=== PATIENT | female | born 1995 ===

== ENCOUNTER 2021-01-01 07:56 | Outpatient (REF) | payer MEDICAID, SELFPAY ==
[2021-01-01 14:34] LABS: CT PCR NOT DETECTED (Not Detect.); NG PCR NOT DETECTED (Not Detect.)
[2021-01-02 09:21] LABS: BV Int Neg Control Negative (Negative); BV Int Pos Control Positive (Positive)
== END 2021-01-01 07:57 | disposition home or self-care (01) ==
LOC: HO.LAB 07:56
PROVIDERS: Visit Provider Advanced Practice Midwife
DX: Z01.419 Encounter for gynecological examination (general) (routine) without abnormal findings (principal); N89.8 Other specified noninflammatory disorders of vagina; Z20.2 Contact with and (suspected) exposure to infections with a predominantly sexual mode of transmission
CPT/HCPCS: 87480; 87491; 87510; 87591; 87660

== ENCOUNTER 2022-02-06 08:10 | Outpatient (REF) | payer MEDICAID, SELFPAY ==
[2022-02-06 18:29] LABS: CT PCR NOT DETECTED (Not Detect.); NG PCR NOT DETECTED (Not Detect.)
[2022-02-07 13:07] LABS: BV Int Neg Control Negative (Negative); BV Int Pos Control Positive (Positive)
== END 2022-02-06 08:11 | disposition home or self-care (01) ==
LOC: HO.LAB 08:10
PROVIDERS: Visit Provider Advanced Practice Midwife
DX: Z01.411 Encounter for gynecological examination (general) (routine) with abnormal findings (principal); N93.0 Postcoital and contact bleeding; Z20.2 Contact with and (suspected) exposure to infections with a predominantly sexual mode of transmission
CPT/HCPCS: 87480; 87491; 87510; 87591; 87660; 88142

== ENCOUNTER 2023-02-09 08:53 | Outpatient (REF) | payer MEDICAID, SELFPAY ==
[2023-02-10 09:35] LABS: BV Int Neg Control Negative (Negative); BV Int Pos Control Positive (Positive)
== END 2023-02-09 08:54 | disposition home or self-care (01) ==
LOC: HO.LAB 08:53
PROVIDERS: PCP Internal Medicine; Visit Provider Advanced Practice Midwife
DX: Z01.419 Encounter for gynecological examination (general) (routine) without abnormal findings (principal); Z20.2 Contact with and (suspected) exposure to infections with a predominantly sexual mode of transmission; R21 Rash and other nonspecific skin eruption; N92.6 Irregular menstruation, unspecified; F43.9 Reaction to severe stress, unspecified
CPT/HCPCS: 0353U; 86704; 86780; 86803; 87389; 87480; 87510; 87660

== ENCOUNTER 2023-02-09 09:33 | Outpatient (REF) | payer MEDICAID, SELFPAY | END 2023-02-09 09:34 | disposition home or self-care (01) | LOC: HO.LNP 09:33 | PROVIDERS: Visit Provider Advanced Practice Midwife | DX: Z13.89 Encounter for screening for other disorder (principal) ==

== ENCOUNTER 2023-02-09 09:49 | Outpatient (REF) | payer MEDICAID, SELFPAY ==
[2023-02-09 11:58] LABS: HBc Num1 0.06 S/CO (0.00-0.79); HIV AB/AG Nonreactive (Nonreactive); HIV Num 1 0.06 S/CO (0.00-0.99); Hepatitis B Core Antibody Nonreactive (Nonreactive); Syphilis Screen Nonreactive (Nonreactive); ~HepC Num1 0.11 S/CO (0.00-0.79); ~Hepatitis C Antibody Nonreactive (Nonreactive)
[2023-02-09 14:31] LABS: CT PCR NOT DETECTED (Not Detect.); NG PCR NOT DETECTED (Not Detect.)
== END 2023-02-09 09:50 | disposition home or self-care (01) ==
LOC: HO.LAB 09:49
PROVIDERS: PCP Internal Medicine; Visit Provider Advanced Practice Midwife
DX: Z11.4 Encounter for screening for human immunodeficiency virus [HIV] (principal); Z11.3 Encounter for screening for infections with a predominantly sexual mode of transmission; R21 Rash and other nonspecific skin eruption; Z20.2 Contact with and (suspected) exposure to infections with a predominantly sexual mode of transmission
CPT/HCPCS: 0353U; 86704; 86780; 86803; 87389

== ENCOUNTER 2025-02-07 14:11 | Outpatient (AMB) | payer MEDICAID, SELFPAY ==
[2025-02-07 14:14] VITALS: BP 102/64; BMI 22.7
--- NOTE | 2025-02-07 14:14 | A.OFFVIS_ITS ---
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 Doing well with varnish blender concerns: itching rash on trunk, arms, she reports this rash occurred in the past but did not stay as long as it has now, she is not sure it's cause. Regular monthly menses. Currently is sexually active. She denies vaginal itching and irritation. STI screening offered; she accepts. She tries to eat healthy and stays active with exercise. Denies family history of breast, ovarian or colon cancer. Last pap smear 2021, negative. [facility] Medical History (Updated 02/07/25 @ 16:15 by Cinthya Linares CNM) Breast mass, right Abnormality of cervix Surgical History Hx of section Family History Sister Breast atypical hyperplasia Social History Alcohol intake: current Alcohol intake frequency: holidays/special occasions only Patient Tobacco Use Status: Never used Tobacco Substance Use Type: Marijuana Sexual orientation: Straight/Heterosexual Gender identity: Female Female Reproductive History Menstrual Age of Menarche: 13 Duration of menses: 3-5 days Date of last menstrual period: 01/25/25 control method: none Total pregnancies: 3 Full term: 3 Number of Living Children: 3 Date of last pap smear: 02/06/22 (neg) Review of Systems Const All systems reviewed & are unremarkable except as noted in HPI and below Reports as per HPI Eyes Reports no additional complaints ENT Reports no additional complaints Card Reports no additional complaints Resp Reports no additional complaints GI Reports as per HPI and Reports no additional complaints Reports as per HPI Musc Reports no additional complaints Skin/Breast Reports as per HPI Neuro Reports no additional complaints Psych Reports no additional complaints Endo Reports no additional complaints Hans/Lymph Reports no additional complaints Aller/Immun Reports no additional complaints Physical Exam Vital Signs: Last Vital Signs BP 102/64 02/07/25 14:14 BMI result Body Mass Index 22.7 Const General: cooperative, healthy appearing, no acute distress, well developed and alert Orientation/consciousness: patient oriented x3 HEENT Head: Yes normal to inspection Eyes General: appearance normal, both eyes and all related structures Neck Neck: Yes normal visual inspection Thyroid: Thyroid normal Chest Other: Palpable breast lump right side at 12:00 above areola Chest palpation & inspection: normal inspection of the chest and other (no puckering, dimpling, peau de orange, retraction, discharge, masses) Breast/axilla inspection: normal inspection of the breasts Breast/axilla palpation: abnormal palpation of the breast (right breast lump 12:00) Resp Effort & Inspection: normal respiratory effort GI Inspection: Yes normal to inspection and Yes scar Palpation (GI): Soft to palpation Rectal Exam - Female: deferred General: Yes bladder normal to palpation External Female Exam: normal external appearance and normal appearance of the urethra Speculum Exam - Vagina: normal appearance of the vagina, normal palpation and normal vaginal discharge Speculum Exam - Cervix: normal appearance of the cervix, normal palpation and Other cervical findings present (Abnormal appearance, bled with Pap) Bimanual exam- vagina & uterus: normal bimanual exam, normal palpation, uterine size normal, bladder normal to palpation, normal palpation and non-tender Bimanual Exam- Adnexa, other: no masses Skin Other: pink macular rash on chest and arm Rashes: no rashes Neuro General: patient oriented x3 Cognition (Neuro): normal cognition Extrem General: Yes normal to inspection Psych Attitude: cooperative Thought process: Normal thought process present Results AMB Test Urine AMB Test Urine Negative Last Edit by HODAN Membreno on 02/07/25 14:41 Results Reviewed Results Reviewed: Laboratory Last Values Tst Clinic Negative 02/07/25 14:41 Assessment & Plan Assessment & Plan (1) Encounter for annual routine gynecological examination: Code(s): Z01.419 - Encounter for gynecological examination (general) (routine) without abnormal findings Category: Medical Plan: Discussed: Current recommendations for pap smears per ASCCP guidelines. Pap obtained Breast awareness and periodic breast exams. Maintain a healthy lifestyle including a well balanced diet and routine exercise. Use condoms for STI and prevention. Consider options for control await workup for breast first before initiating any hormones. Follow up with PCP for a skin rash if persist. Patient verbalizes understanding and agrees to the plan of care. She was given opportunity to ask questions and all questions were answered to the best of my ability. RTO in one year for annual varnish blender examination. This note is constructed using voice recognition software. While every effort has been made to ensure accuracy, contract analyst errors may have been included. (2) Postcoital bleeding: Code(s): N93.0 - Postcoital and contact bleeding Category: Medical Plan: Cultures obtained. Await results for plan of care. (3) Abnormality of cervix: Code(s): N88.9 - Noninflammatory disorder of cervix uteri, unspecified Category: Medical Plan: Cervical cultures obtained, Ultrasound ordered, plan follow up pending results. Total time I personally spent on visit and management today: 15 minutes. Time spent included review of pertinent office notes in the electronic health record; review of laboratory and imaging results; review of personal family medical history; performing physical exam; discussing diagnosis and plan of care with the patient; documenting the encounter in the EMR. (4) Breast mass, right: Code(s): N63.10 - Unspecified lump in the right breast, unspecified quadrant Category: Medical Qualifiers: Breast mass location: unspecified quadrant Qualified Code(s): N63.10 - Unspecified lump in the right breast, unspecified quadrant Plan Plan breast ultrasound, and diagnostic bilateral mammogram. Follow up pending test results. Consider surgical referral if indicated. The patient expressed understanding and agreement with the plan of care. All of her questions and concerns were addressed to the best of my ability. This note is constructed using voice recognition software. While every effort has been made to ensure accuracy, contract analyst errors may have been included. Orders: Orders HIV Ab/Ag Today Z20.2 - Contact with and (suspected) exposure to infections with a predominantly sexual mode of transmission Hepatitis C Antibody Reflex Today Z20.2 - Contact with and (suspected) exposure to infections with a predominantly sexual mode of transmission Hepatitis B Core Antibody Today Z20.2 - Contact with and (suspected) exposure to infections with a predominantly sexual mode of transmission US pelvic and transvaginal Today N88.9 - Noninflammatory disorder of cervix uteri, unspecified, N93.0 - Postcoital and contact bleeding MM tomosynthesis diagnostic BI Today Z01.419 - Encounter for gynecological examination (general) (routine) without abnormal findings, Z12.31 - Encounter for screening mammogram for malignant neoplasm of breast CT NG by PCR Today N89.8 - Other specified noninflammatory disorders of vagina, N93.0 - Postcoital and contact bleeding Syphilis Screen Today Z20.2 - Contact with and (suspected) exposure to inf ections with a predominantly sexual mode of transmission US breast RT limited Today N63.10 - Unspecified lump in the right breast, unspecified quadrant Bacterial Vaginosis Panel Today N89.8 - Other specified noninflammatory disorders of vagina, N93.0 - Postcoital and contact bleeding HPV High risk Today Z01.419 - Encounter for gynecological examination (general) (routine) without abnormal findings Pap Smear Today Z01.419 - Encounter for gynecological examination (general) (routine) without abnormal findings AMB HCG Urine Test Today N93.0 - Postcoital and contact bleeding, Z32.02 - Encounter for test, result negative Coding Level of Care Code Est Pt Level 2 (54161) Est Pt Prev Care 18-39y(59770) Diagnoses Encounter for annual routine gynecological examination Z01.419 Postcoital bleeding N93.0 Abnormality of cervix N88.9 Mass of right breast, unspecified quadrant N63.10 Breast mass location: unspecified quadrant
== END 2025-02-07 14:44 | disposition home or self-care (01) ==
PROVIDERS: PCP Internal Medicine; Visit Provider Advanced Practice Midwife
DX: Z01.419 Encounter for gynecological examination (general) (routine) without abnormal findings (principal); N93.0 Postcoital and contact bleeding; N88.9 Noninflammatory disorder of cervix uteri, unspecified; N63.10 Unspecified lump in the right breast, unspecified quadrant; Z32.02 Encounter for pregnancy test, result negative
CPT/HCPCS: 99212; 99395; 99459

== ENCOUNTER 2025-02-07 14:11 | Outpatient (REF) | payer MEDICAID, SELFPAY ==
--- OUTSIDE RECORDS SUMMARY | 2025-02-07 16:51 | XMS_ITS | Clinical Summary ---
Author Organization [employer] Address [address] [place] [address] Care Team Providers Care Laboratory Secretary Name Role Phone Swathi Mckeon MD Primary Care Provide r Allergies No known active allergies Medications famotidine (Pepcid) 20 MG tabletIndicatio ns:Gastroesopha geal reflux disease without esophagitis,Hea rtburn Take 1 tablet (20 mg) by mouth 2 times daily. 60 tablet 11 02/13/2023 Active hydrOXYzine HCl (Atarax) 25 MG tabletIndicatio ns:Anxiety Take 1 tablet (25 mg) by mouth every 8 (eight) hours if needed for itching for up to 20 days. 30 tablet 1 02/13/2023 Active sertraline (Zoloft) 25 MG tabletIndicatio ns:Anxiety Take 1 tablet (25 mg) by mouth in the morning. 30 tablet 1 02/13/2023 Active loratadine (Claritin) 10 MG tabletIndicatio ns:Allergy, initial encounter Take 1 tablet (10 mg) by mouth in the morning. 30 tablet 11 02/13/2023 Active Active Problems Problem Noted Date Diagnosed Date Anxiety 02/13/2023 Assessment & Plan (02/13/2023 10:16 AM EDT): We talked about non-medication interventions for anxiety including exercise, meditation, counseling, mindfulness practices. I started today sertraline and hydroxyzine BHN referral RTC 4 weeks televisit Gastroesophageal reflux disease without esophagi tis 02/13/2023 Assessment & Plan (02/13/2023 10:16 AM EDT): I advise patient to avoid NSAIDs, spicy and acid food, I advise to eat at the same time every day, I advise to elevate the head of the bed and take medications as prescribe Heartburn 02/13/2023 Assessment & Plan (02/13/2023 10:17 AM EDT): h pylori test See GERD plan Health care maintenance 02/13/2023 Assessment & Plan (02/13/2023 10:17 AM EDT): Patient reports PAP is up to date Allergies 02/13/2023 Encounters Date Type Department Care Team Description 12/23/2024 Population Health Risk Score [facility] () Department [address] [place] [address] [phone] Provider, Population Health Generic from Last 3 Months Immunizations Name Administration Dates Next Due Influenza injectable quadrivalent preservative f ree 07/29/2019 Tdap 03/24/2016 Varicella 12/11/2019 Social History Tobacco Use Types Packs/Day Years Used Date Smoking Tobacco: Never Smokeless Tobacco: Never Tobacco Cessation:Counseling Given: Not Answered Alcohol Use Standard Drinks/Week Comments Never 0 (1 standard drink = 0.6 oz pur e alcohol) Depression Answer Date Recorded Patient Health Questionnaire-9 Score 5 02/13/2023 Housing Stability Answer Date Recorded What is your housing situation today? I have darlingcarline mercado 08/17/[address] you li ve. Do you have problems with any of the following? None of the above 08/17/2023 Food Insecurity Answer Date Recorded Within the past 12 months, y ou worried that your food would run out before you got money to buy more: Never True 08/17/2023 Within the past 12 months,th e food you bought just didn't last and you didn't have enough money to get more: Never True 03/2023 Utilities Answer Date Recorded In the past 12 months, has t he electric, gas, oil or water company threatened to shut off services in your home? No 08/17/2023 Depression Answer Date Recorded Patient Health Questionnaire-2 Score 2 02/13/2023 Comments Unknown Sex and Gender Information Value Date Recorded Sex Assigned at Female 08/11/2022 10:15 AM EDT Legal Sex Female 10:15 AM EDT Gender Identity Female 08/11/2022 10:15 AM EDT Sexual Orientation Straight 08/11/2022 10 :15 AM EDT Last Filed Vital Signs Vital Sign Reading Time Taken Comments Blood Pressure 114/58 02/13/2023 9:17 AM EDT Pulse 84 02/13/2023 9:17 AM EDT Temperature 37.1 ??C (98.7 ??F) 02/13/2023 9:17 AM ED T Respiratory Rate 20 02/13/2023 9:17 AM EDT Oxygen Saturation - - Inhaled Oxygen Concentration - - Weight 52.8 kg (116 lb 6 oz) 02/13/2023 9:17 AM EDT Height 157.5 cm (5' 2 ) 02/13/2023 9:17 AM EDT Body Mass Index 21.29 02/13/2023 9:17 AM EDT Plan of Treatment Health Maintenance Due Date Last Done Comments Alcohol/Substance Use Screening 2006 Family Planning (PISQ) 2009 Hepatitis B Vaccines (1 of 3 - 19+ 3-dose series) 2013 Depression Screening 02/14/2024 02/13/2023, 02/13/2023 SDOH Screening 02/14/2024 02/13/2023 Tobacco Screening 02/14/2024 02/13/2023 HPV/Cotest 02/21/2024 COVID-19 Vaccine (3 - 2023-2 5 season) 2024 01/14/2022, 12/24/2021 Influenza Vaccine (#1) 2024 07/29/2019 Cervical Cancer Screening 02/07/2025 Pap Smear 02/07/2025 02/07/2022 DTaP/Tdap/Td Vaccines (2 - T d or Tdap) 03/24/2026 03/24/2016 Zoster Vaccines (1 of 2) 02/21/2044 RSV Patients and Patients Aged 60 years or older (1 - 1-dose 75+ series) 2069 HIV Screening Completed 02/09/2023 Hepatitis C Screening Completed 02/09/2023 HIB Vaccines Aged Out No longer eligi ble based on patient's age to complete this topic HPV Vaccines Aged Out No longer eligi ble based on patient's age to complete this topic Hepatitis A Vaccines Aged Out No long er eligible based on patient's age to complete this topic IPV Vaccines Aged Out No longer eligi ble based on patient's age to complete this topic Meningococcal Vaccine Aged Out No belkys jess eligible based on patient's age to complete this topic Pneumococcal Vaccine: Pediatrics (0 to 5 Years) and At-Risk Patients (6 to 49) Years) Aged Out No longer eligible b ased on patient's age to complete this topic RSV under 20 months Aged Out No longe r eligible based on patient's age to complete this topic Rotavirus Vaccines Aged Out No longer eligible based on patient's age to complete this topic Procedures Procedure Name Priority Date/Time Associated Diagnosis Comments HEPATITIS C ANTIBODY Routine 02/09/2023 10:10 AM EDT HIV ANTIBODY/ANTIGEN (LUPE BOLIVAR) Routine 02/09/2023 10:10 AM EDT HM PAP/HPV Routine 02/07/2022 from Last 3 Months or Most Recently Relevant to Health Maintenance Results * Hepatitis C Ab (02/09/2023 10:10 AM EDT) Hepatitis C Antibody Nonreactive Nonreactive [facility] Comment:Antibodies to HCV no t detected; does not exclude early acuteHCV infection. 02/09/2023 10:1 0 AM EDT 02/09/2023 10:10 AM EDT [facility] External Provider LAB BLO OD ORDERABLES Final Result [facility] [address] [place] [phone] * HIV Ab/Ag (LUPE DPH) (02/09/2023 10:10 AM EDT) HIV AB/AG Nonreactive Nonreactive [facility] Comment:HIV-1 p24 Ag and/or HIV-1/HIV-2 Ab not detected.A test result that is nonreactive does not exclude thepossibility of exposure to or infection with HIV-1 and/orHIV-2. Nonreactive results in this assay for individualswith prior exposure to HIV-1 and/or HIV-2 may be due toantigen and antibody levels that are below the limit ofdetection of this assay.The [employer] HIV Ag/Ab Combo assay result andsupplemental assay results should be interpreted inconjunction with the patient's clinical presentation,history and other laboratory results. If the results areinconsistent with clinical evidence, additional testing issuggested to confirm the result. 02/09/2023 10:1 0 AM EDT 02/09/2023 10:10 AM EDT [facility] External Provider LAB BLO OD ORDERABLES Final Result [facility] [address] [place] [address] [phone] * Pap Smear (02/07/2022) Pap Negative for intraephithelial lesion or malignancy Negative for intraephithelial lesion or malignancy, Other Historical Provider MD HEALTH MAINTENANCE Final Result from Last 3 Months or Most Recently Relevant to Health Maintenance Insurance [facility] [address] C[address] Care Teams Laboratory Secretary Relationship Specialty Start Date End Date Swathi Mckeon MD [address] [place] [address] [place] [address] PCP - General Internal Medicine 02/05/23
[2025-02-07 17:46] LABS: Bacterial Vaginosis PCR NEGATIVE (Negative); Candida Group PCR DETECTED (Not Detect); Candida glab krusei PCR NOT DETECTED (Not Detect); Trichomonas vaginalis PCR NOT DETECTED (Not Detect)
[2025-02-07 18:11] LABS: CT PCR NOT DETECTED (Not Detect.); NG PCR NOT DETECTED (Not Detect.)
[2025-02-08 08:03] LABS: Syphilis Screen Nonreactive (Nonreactive)
[2025-02-08 11:47] LABS: HBc Num1 0.06 S/CO (0.00-0.79); HIV AB/AG Nonreactive (Nonreactive); HIV Num 1 0.06 S/CO (0.00-0.99); Hepatitis B Core Antibody Nonreactive (Nonreactive); ~HepC Num1 0.09 S/CO (0.00-0.79); ~Hepatitis C Antibody Nonreactive (Nonreactive)
[2025-02-10 13:45] LABS: HPV Genotype 16 Negative (Negative); HPV Genotype 18 Negative (Negative); HPV High Risk Negative (Negative)
== END 2025-02-07 14:12 | disposition home or self-care (01) ==
LOC: HO.LAB 14:11
PROVIDERS: PCP Internal Medicine; Visit Provider Advanced Practice Midwife
DX: Z01.419 Encounter for gynecological examination (general) (routine) without abnormal findings (principal); Z20.2 Contact with and (suspected) exposure to infections with a predominantly sexual mode of transmission; N89.8 Other specified noninflammatory disorders of vagina; N93.0 Postcoital and contact bleeding
CPT/HCPCS: 81025; 81515; 86704; 86780; 86803; 87389; 87491; 87591; 87626; 88175; 99212; 99395; 99459

== ENCOUNTER 2025-02-07 14:31 | Outpatient (REF) | payer MEDICAID, SELFPAY | END 2025-02-07 14:32 | disposition home or self-care (01) | LOC: HO.LAB 14:31 | PROVIDERS: Visit Provider Advanced Practice Midwife | DX: Z13.89 Encounter for screening for other disorder (principal) ==

== ENCOUNTER 2025-03-03 13:56 | Outpatient (REF) | payer MEDICAID, SELFPAY ==
--- NOTE | ~2025-03-03 | US_ITS ---
EXAMINATION: US PELVIS TRANSABDOMINAL AND TRANSVAGINAL HISTORY: N93.0 - Postcoital and contact bleeding COMPARISON: There are no prior studies for comparison. TECHNIQUE: Transabdominal and endovaginal real-time 2D lopez-scale ultrasound was performed. FINDINGS: Uterus: The uterus is normal in size, measuring 8.8 x 4.1 x 5.4 cm. Myometrium has a normal echotexture. No fibroids are identified. Endometrium: The endometrial stripe measures 7 mm in thickness. A small amount of fluid is seen in the endometrial canal. Right ovary: The right ovary measures 1.7 x 1.9 x 2.0 cm. The right ovary is normal in size and echotexture. Left ovary: The left ovary measures 3.2 x 2.3 x 3.0 cm. The left ovary is normal in size and echotexture. There is a dominant 1.9 x 1.3 x 1.6 cm follicle. Pelvic fluid: none. US/US pelvic and transvaginal IMPRESSION: Small amount of fluid in the endometrial canal. Otherwise unremarkable pelvic ultrasound. Electronically signed by: Manpreet Thao MD 03/03/2025 02:56 PM EDT
--- OUTSIDE RECORDS SUMMARY | 2025-03-03 13:59 | XMS_ITS | Clinical Summary ---
Author Organization [employer] Address [address] [place] [address] Care Team Providers Care Director Community Health Nursing Name Role Phone Swathi Mckeon MD Primary [...] Encounters Date Type Department Care Team Description 02/10/2025 Telephone [facility] MEDICINE [address] [place], [place] [phone] Swathi Mckeon MD Results 02/07/2025 Orders Only GENERIC EXTERNAL DATA DEPARTMENT Provider, Generic External Data 12/23/2024 Population Health Risk Score [facility] () Department [address] [place] [phone] Provider, Population Health Generic from Last 3 Months Immunizations Immunization Administration Dates Next Due Influenza injectable quadrivalent [...] is your housing situation today? I have darling mercado 08/17/[address] you [...] 02/13/2023 9:17 AM EDT Plan of Treatment Upcoming Encounters Date Type Department Care Team (Late st Contact Info) Description 03/27/2025 10:15 AM EDT Office Visit [facility] [address] [place] [address] Swathi Mckeon MD [address] [place] [address] Health Maintenance Due Date Last Done Comments Disability Screening 1994 Alcohol/Substance Use Screening 2006 Family Planning (PISQ) 2009 Hepatitis B Vaccines (1 of 3 - 19+ 3-dose series) 2013 Depression Screening 02/14/2024 02/13/2023, 02/13/2023 SDOH Screening 02/14/2024 02/13/2023 Tobacco Screening 02/14/2024 02/13/2023 COVID-19 Vaccine (3 2023-2 5 season) 2024 01/14/2022, 12/24/2021 Influenza Vaccine (#1) 2024 07/29/2019 DTaP/Tdap/Td Vaccines (2 - T d or Tdap) 03/24/2026 03/24/2016 Cervical Cancer Screening 02/07/2030 HPV/Cotest 02/07/2030 02/07/2025 Pap Smear 02/07/2030 02/07/2025, 02/07/2022 Zoster Vaccines (1 of 2) 02/21/2044 RSV Patients and Patients Aged 60 years or older (1 - 1-dose 75+ series) 2069 HIV Screening Completed 02/07/2025, 02/09/2023 Hepatitis C Screening Completed 02/07/2025 , 02/09/2023 HIB Vaccines Aged Out No longer [...] patient's age to complete this topic Meningococcal B Vaccine Aged Out No l onger eligible based on patient's age to complete [...] Procedure Name Priority Date/Time Associated Diagnosis Comments HIV 1/2 ANTIGEN/ANTIBODY, FOURTH GENERATION W/RFL Routine 02/07/2025 3:00 PM EDT HEPATITIS C AB W/REFL TO HCV RNA, QN, PCR Routine 02/07/2025 3:00 PM EDT HEPATITIS B CORE AB TOTAL Routine 02/07/2025 3:00 PM EDT SYPHILIS SCREEN Routine 02/07/2025 3:00 PM EDT PAP SMEAR Routine 02/07/2025 2:31 PM EDT HPV DNA, LOW/HIGH RISK Routine 02/07/2025 2:31 PM EDT CHLAMYDIA/N. GONORRHOEAE RNA, TMA, UROGENITAL Routine 02/07/2025 2:11 PM EDT BACTERIAL VAGINOSIS PANEL Routine 02/07/2025 2:11 PM EDT from Last 3 Months Results * Syphilis Screen (02/07/2025 3:00 PM EDT) Syphilis Screen Nonreactive Nonreactive [facility] 02/07/2025 3:00 PM EDT 02/07/2025 3:03 PM EDT Generic External Data Provider LAB BLOOD ORDERAB LES Final Result Performing Organization Address City/[facility]/ZIP Co de Phone Number [facility] [address] [place] [phone] * Hepatitis C Antibody with Reflex to HCV, RNA, Quantitative, Real-Time PCR (02/07/2025 3:00 PM EDT) Pathologist [facility] Hepatitis C Antibody Nonreactive Nonreactive [facility] Comment:Antibodies to HCV no t detected; does not exclude early acuteHCV infection. 02/07/2025 3:00 PM EDT 02/07/2025 3:03 PM EDT Generic External Data Provider LAB BLOOD ORDERAB LES Final Result Performing Organization Address City/[facility]/ZIP Co de Phone Number [facility] [address] [place] [phone] * Hepatitis B Core Antibody, Total (02/07/2025 3:00 PM EDT) Hepatitis B Core Antibody Nonreactive Nonreactive [facility] 02/07/2025 3:00 PM EDT 02/07/2025 3:03 PM EDT us Generic External Data Provider LAB BLOOD ORDERAB LES Final Result Performing Organization Address City/[facility]/ZIP Co de Phone Number [facility] [address] [place] [phone] [phone] * HIV-1/2 Antigen and Antibodies, Fourth Generation, with Reflexes (02/07/2025 3:00 PM EDT) HIV AB/AG Nonreactive Nonreactive [facility] Comment:HIV-1 p24 Ag and/or HIV-1/HIV-2 Ab not detected.A test result that is nonreactive does not exclude thepossibility of exposure to or infection with HIV-1 and/orHIV-2. Nonreactive results in this assay for individualswith prior exposure to HIV-1 and/or HIV-2 may be due toantigen and antibody levels that are below the limit ofdetection of this assay.The [employer] HIV Ag/Ab Combo assay result andsupplemental assay results should be interpreted inconjunction with the patient's clinical presentation,history and other laboratory results. If the results areinconsistent with clinical evidence, additional testing issuggested to confirm the result. 02/07/2025 3:00 PM EDT 02/07/2025 3:03 PM EDT us Generic External Data Provider LAB BLOOD ORDERAB LES Final Result Performing Organization Address City/[facility]/ZIP Co de Phone Number [facility] [address] [place] [phone] [phone] * HPV DNA, Low/High Risk (02/07/2025 2:31 PM EDT) HPV High Risk Negative Negative [facility] HPV Genotype 16 Negative Negative [facility] HPV Genotype 18 Negative Negative [facility] Comment:HPV testing performe d at [facility] (CLIA#[id number] [address].Testing for HPV was performed using the Angi SLAVA 6800system. The presence of HPV in the female genital tract isassociated with a number of diseases, including cervicalcarcinoma. The HPV DNA high risk pool tests for HPV 31, 33,35, 39, 45, 51, 52, 56, 58, 59, 66 and 68. The testing forHPV 16 and 18 genotypes has also been performed. A positiveresult indicates detection of nucleic acid sequences fromone or more subtypes, whereas a negative result indicatessuch sequences were not detected. 02/07/2025 2:31 PM EDT 02/08/2025 5:50 AM EDT us Generic External Data Provider LAB BLOOD ORDERAB LES Final Result [facility] [address] [place] [phone] * Pap Smear (02/07/2025 2:31 PM EDT) 02/07/2025 2:31 PM EDT 02/08/2025 5:50 AM EDT Narrative [facility] - 02/10/2025 10:07 AM EDT ----- ------- Name: Colon,Carly ?Age/Sex: 29/F ? : 1995 Unit#: [id number] ?? Attend Dr: Cinthya Linares CNM ?Re02/07/25 ?Status: DEP REF ? Location: HO.LAB ?Disch: ? ----- ------- SPEC : [id number] ? RECD: 02/08/25-53 ? STATUS: ??SOUT ? REQ NUM: [id number] ? BARAK: 02/07/25-7261 ? SUBM DR: Cinthya Linares CNM ? ENTERED: ??02/08/25-616 ?SP TYPE: Pap Smr ?OTHR DR: Swathi Mckeon MD ? ORDERED: ??Pap Smear ? Interpretation ?? Satisfactory for evaluation. ?? Negative for intraepithelial lesion or malignancy. ? HPV High Risk: ??Negative ? HPV Genotyping 16: ??Negative ?? HPV Genotyping 18: ??Negative ?Clinical Information LMP:01/25/25 Previous PAP test:02/06/22 ? Material Received ?? ThinPrep-Cervical Copies To: ?? Swathi Mckeon MD ?? [facility] ?? [address] [facility] ?? [place] [address] ?? [phone] ?? Cinthya Linares CNM ?? [facility] ?? [address] ?? [place] [address] ?? [phone] ----- ------- Signed (signature on file) ANNETTA Ng (ASCP) 02/10/25 1007 ? ----- ------- ? END OF REPORT ? us Generic External Data Provider LAB CYTOLOGY JONNA PEREZ Final Result [facility] [address] [facility] [facility] [place] [phone] * (ABNORMAL) Bacterial Vaginosis (02/07/2025 2:11 PM EDT) TRICHOMONAS VAGINALIS DETECTION BY PCR NOT DETECTED Not Detect [facility] BACTERIAL VAGINOSIS DETECTION BY PCR NEGATIVE Negative [facility] Comment:The BV organism targ ets of the Xpert Xpress MVP test can becommensal in women; Xpert Xpress MVP positive results forbacterial vaginosis should be considered in conjunction withother clinical and patient information to determine thedisease status. Organisms that are not detected by the XpertXpress MVP test have also been reported to be associatedwith BV and aerobic vaginitis.The Xpert Xpress MVP test performance has not been evaluatedin patients under the age of 14. SHALINI GROUP DETECTION BY PCR DETECTED(A) Not Detect [facility] Shalini glab krusei PCR NOT DETECTED Not Detect [facility] 02/07/2025 2:11 PM EDT 02/07/2025 3:24 PM EDT us Generic External Data Provider LAB MICROBIOLOGY - GENERAL ORDERABLES Final Result [facility] [address] [place] [phone] * Chlamydia/N. Gonorrhoeae RNA, TMA, Urogenitial (02/07/2025 2:11 PM EDT) CT PCR NOT DETECTED Not Detect. [facility] Comment:A not detected test result does not exclude the possibilityof infection because test results can be affected byimproper specimen collection, concurrent antibiotic therapy,or the number of organisms in the specimen which may bebelow the sensitivity of the test. As with many diagnostictests, results from the Xpert CT/NG assay should beinterpreted in conjunction with other laboratory andclinical data available to the clinician.Xpert CT/NG performance has not been evaluated in patientsless than 14 years of age. The assay should not be used forthe evaluationof suspected sexual abuse or for other medico-legalindications. Additional testing is recommended in anycircumstance when false positive or false negative resultscould lead to adverse medical, social or psychologicalconsequences. NG PCR NOT DETECTED Not Detect. [facility] Comment:A not detected test result does not exclude the possibilityof infection because test results can be affected byimproper specimen collection, concurrent antibiotic therapy,or the number of organisms in the specimen which may bebelow the sensitivity of the test. As with many diagnostictests, results from the Xpert CT/NG assay should beinterpreted in conjunction with other laboratory andclinical data available to the clinician.Xpert CT/NG performance has not been evaluated in patientsless than 14 years of age. The assay should not be used forthe evaluationof suspected sexual abuse or for other medico-legalindications. Additional testing is recommended in anycircumstance when false positive or false negative resultscould lead to adverse medical, social or psychologicalconsequences. 02/07/2025 2:11 PM EDT 02/07/2025 3:24 PM EDT Narrative [facility] - 02/07/2025 6:12 PM EDT Vaginal us Generic External Data Provider LAB MICROBIOLOGY - GENERAL ORDERABLES Final Result [facility] [address] [place] [phone] from Last 3 Months Insurance [facility] C3 Care Teams Director Community Health Nursing Relationship Specialty Start Date End Date Swathi Mckeon MD [address] [place] [phone] PCP - General Internal Medicine 02/05/23
== END 2025-03-03 13:57 | disposition home or self-care (01) ==
LOC: HO.US 13:56
PROVIDERS: PCP Internal Medicine; Visit Provider Advanced Practice Midwife
DX: N93.0 Postcoital and contact bleeding (principal); N88.9 Noninflammatory disorder of cervix uteri, unspecified
CPT/HCPCS: 76830; 76856

== ENCOUNTER → 2025-03-03 13:58 | Outpatient (BNV) | payer MEDICAID, SELFPAY | PROVIDERS: PCP Internal Medicine; Visit Provider Radiology Diagnostic Radiology | DX: N85.8 Other specified noninflammatory disorders of uterus (principal) | CPT/HCPCS: 76830; 76856 ==

== ENCOUNTER 2025-03-13 09:43 | Outpatient (REF) | payer MEDICAID, SELFPAY ==
--- NOTE | ~2025-03-13 | US_ITS ---
EXAMINATION: MM DIAGNOSTIC DIGITAL BREAST TOMOSYNTHESIS, BILATERAL Right limited ultrasound. CLINICAL INFORMATION: Right breast palpable lump. COMPARISON: Mammography: Baseline. TECHNIQUE: Digital breast mammography with tomosynthesis is performed in both the craniocaudal and mediolateral oblique views along with computer-aided detection (CAD). FINDINGS: The breasts are heterogeneously dense, which may obscure small masses (ACR BI-RADS breast composition Category c). BB marker in the lower inner right breast without underlying abnormality. There are no significant masses, abnormal calcifications, or other abnormalities. Targeted color Doppler ultrasound scanning from 2 6:00 in the area the patient's palpable lump demonstrates normal fibroglandular breast tissue. There is no sonographic abnormal findings. Results are provided to the patient at time of visit by the technologist. US/US breast RT limited mamm only IMPRESSION: Left: Negative. Right: No mammographic or sonographic abnormality to account for the patient's right breast palpable lump. Recommend clinical evaluation and follow-up. ASSESSMENT: BI-RADS BI-RADS 1 - Negative RECOMMENDATION: 1. Patient should be managed based on the clinical impression. 2. Otherwise, routine annual screening mammography. This patient's information was entered into a reminder system with a target due date for their next mammogram at age 39. Electronically signed by: Juani Patel DO 03/13/2025 11:42 AM EDT
--- OUTSIDE RECORDS SUMMARY | 2025-03-13 10:23 | XMS_ITS | Clinical Summary ---
Author Organization [employer] Address [address] [place] [address] Care Team Providers Care Asset Administrator Name Role Phone Swathi Mckeon MD Primary [...] Type Department Care Team Description 02/10/2025 Telephone [facility] [address] [place], [place] [phone] Swathi Mckeon MD Results 02/07/2025 Orders Only GENERIC EXTERNAL DATA DEPARTMENT Provider, Generic External Data 12/23/2024 Population Health Risk Score [facility] () Department [address] [place] [phone] Provider, Population Health Generic from Last [...] Description 03/27/2025 10:15 AM EDT Office Visit [facility] [address] [place] [address] Swathi Mckeon MD [address] [place] [address] Health Maintenance Due Date Last Done Comments Disability Screening 1994 Alcohol/Substance Use Screening 2006 Family Planning (PISQ) 2009 Hepatitis B Vaccines (1 of 3 - 19+ 3-dose series) 2013 Depression Screening 02/14/2024 02/13/2023, 02/13/2023 SDOH Screening 02/14/2024 02/13/2023 Tobacco Screening 02/14/2024 02/13/2023 COVID-19 Vaccine (2023-2 5 season) 2024 01/14/2022, 12/24/2021 Influenza Vaccine (Season Ended) 2025 07/29/2019 DTaP/Tdap/Td Vaccines (2 - T d [...] Procedure Name Priority Date/Time Associated Diagnosis Comments US PELVIS TRANSVAGINAL Routine 03/03/2025 2:18 PM EDT HIV 1/2 ANTIGEN/ANTIBODY, FOURTH GENERATION W/RFL Routine [...] EDT from Last 3 Months Results * US Pelvis Transvaginal (03/03/2025 2:18 PM EDT) Anatomical Region Laterality Modality Pelvis Ultrasound 03/03/2025 2:18 PM EDT Narrative 03/03/2025 2:59 PM EDT ? [facility] ?[address] ?[place] [address] ? Ultrasound Report ? Signed ? Patient: Colon,Carly ?MR#: [id number] ?? 0 ? : 1995 ?Acct:[id number] ? Age/Sex: 30 / F ?ADM Date: 03/03/25 ? Loc: HO.US ? Attending Dr: Cinthya Linares CNM ? Ordering Physician: Cinthya Linares CNM ?? Date of Service: 03/03/25 ?? Procedure(s): US pelvic and transvaginal ?? Accession Number(s): [id number] ? cc: Swathi Mckeon MD; Cinthya Linares CNM ? EXAMINATION: ??US PELVIS TRANSABDOMINAL AND TRANSVAGINAL ? HISTORY: N93.0 - Postcoital and contact bleeding ? COMPARISON: There are no prior studies for comparison. ? TECHNIQUE: ? Transabdominal and endovaginal real-time 2D lopez-scale ultrasound was ?? performed. ? FINDINGS: ? Uterus: ??The uterus is normal in size, measuring 8.8 x 4.1 x 5.4 cm. ? Myometrium has a normal echotexture. ??No fibroids are identified. ? Endometrium: ??The endometrial stripe measures 7 mm in thickness. A ?? small amount of fluid is seen in the endometrial canal. ? Right ovary: ??The right ovary measures 1.7 x 1.9 x 2.0 cm. ??The right ?? ovary is normal in size and echotexture. ? Left ovary: ?? The left ovary measures 3.2 x 2.3 x 3.0 cm. ??The left ?? ovary is normal in size and echotexture. There is a dominant 1.9 x 1.3 ?? x 1.6 cm follicle. ? Pelvic fluid: none. ? US/ pelvic and transvaginal ?? IMPRESSION: ?? Small amount of fluid in the endometrial canal. Otherwise unremarkable ?? pelvic ultrasound. ? Electronically signed by: ??Manpreet Thao MD ??03/03/2025 02:56 PM EDT ? Dictated By: ?Manpreet Thao MD ? Signed By: ?<Electronically signed by Manpreet Thao MD in OV> ?03/03/25 1456 ? DD/ 1418 ? TD/TT: 03/03/25 1430 ? [employer]: ? Procedure Note Radha, Image - 03/03/2025 [place] [address] Ultrasound Report Signed Patient: Carly HelmsMR#: [id number] 0 : 1995Acct:[id number] Age/Sex: 30 / FADM Date: 03/03/25 Loc: HO.US Attending Dr: Cinthya Linares CNM Ordering Physician: Cinthya Linares CNM Date of Service: 03/03/25 Procedure(s): US pelvic and transvaginal Accession Number(s): [id number] cc: Swathi Mckeon MD; Cinthya Linares CNM EXAMINATION: US PELVIS TRANSABDOMINAL AND TRANSVAGINAL HISTORY: N93.0 - Postcoital and contact bleeding COMPARISON: There are no prior studies for comparison. TECHNIQUE: Transabdominal and endovaginal real-time 2D lopez-scale ultrasound was performed. FINDINGS: Uterus: The uterus is normal in size, measuring 8.8 x 4.1 x 5.4 cm. Myometrium has a normal echotexture. No fibroids are identified. Endometrium: The endometrial stripe measures 7 mm in thickness. A small amount of fluid is seen in the endometrial canal. Right ovary: The right ovary measures 1.7 x 1.9 x 2.0 cm. The right ovary is normal in size and echotexture. Left ovary: The left ovary measures 3.2 x 2.3 x 3.0 cm. The left ovary is normal in size and echotexture. There is a dominant 1.9 x 1.3 x 1.6 cm follicle. Pelvic fluid: none. US/US pelvic and transvaginal IMPRESSION: Small amount of fluid in the endometrial canal. Otherwise unremarkable pelvic ultrasound. Electronically signed by: Manpreet Thao MD 03/03/2025 02:56 PM EDT RP Dictated By: Manpreet Thao MD Signed By: <Electronically signed by Manpreet Thao MD in OV> 03/03/25 1456 DD/ 1418 TD/TT: 03/03/25 1430 [employer]: us [facility] External Provider IMG US PROCEDURES Final Result * Syphilis Screen (02/07/2025 3:00 PM EDT) Syphilis Screen Nonreactive Nonreactive [facility] 02/07/2025 3:00 PM EDT 02/07/2025 3:03 PM EDT us Generic External Data Provider LAB BLOOD ORDERAB LES Final Result [facility] [address] [place] [phone] * Hepatitis C Antibody with Reflex to HCV, RNA, Quantitative, Real-Time PCR (02/07/2025 3:00 PM EDT) [facility] Hepatitis C Antibody Nonreactive Nonreactive [facility] Comment:Antibodies to HCV no t detected; does not exclude early acuteHCV infection. 02/07/2025 3:00 PM EDT 02/07/2025 3:03 PM EDT Generic External Data Provider LAB BLOOD ORDERAB LES Final Result Performing Organization Address City/[facility]/ZIP Co de Phone Number [facility] [address] [place] [phone] * Hepatitis B Core Antibody, Total (02/07/2025 3:00 PM EDT) [facility] Hepatitis B Core Antibody Nonreactive Nonreactive [facility] 02/07/2025 3:00 PM EDT 02/07/2025 3:03 PM EDT Generic External Data Provider LAB BLOOD ORDERAB LES Final Result Performing Organization Address [facility]/ZIP Co de Phone Number [facility] [address] [place] [phone] * HIV-1/2 Antigen and Antibodies, Fourth Generation, with Reflexes (02/07/2025 3:00 PM EDT) [facility] HIV AB/AG Nonreactive Nonreactive [facility] Comment:HIV-1 p24 Ag and/or HIV-1/HIV-2 Ab not detected.A test result that is nonreactive does not exclude thepossibility of exposure to or infection with HIV-1 and/orHIV-2. Nonreactive results in this assay for individualswith prior exposure to HIV-1 and/or HIV-2 may be due toantigen and antibody levels that are below the limit ofdetection of this assay.The [employer] HIV Ag/Ab Combo assay result andsupplemental assay results should be interpreted inconjunction with the patient's clinical presentation,history and other laboratory results. If the results areinconsistent with clinical evidence, additional testing issuggested to confirm the result. 02/07/2025 3:00 PM EDT 02/07/2025 3:03 PM EDT Generic External Data Provider LAB BLOOD ORDERAB LES Final Result Performing Organization Address [facility]/RUST Co de Phone Number [facility] [address] [place] [phone] * HPV DNA, Low/High Risk (02/07/2025 2:31 PM EDT) HPV High Risk Negative Negative [facility] HPV Genotype 16 Negative Negative [facility] HPV Genotype 18 Negative Negative [facility] Comment:HPV testing performe d at [facility] (CLIA#[id number]), [address] [place] [address].Testing for HPV was performed using the Angi [...] ORDERAB LES Final Result Performing Organization Address [facility]/RUST Co de Phone Number [facility] [address] [place] [phone] * Pap Smear (02/07/2025 2:31 PM EDT) 02/07/2025 2:31 PM EDT 02/08/2025 5:50 AM EDT Narrative [facility] - 02/10/2025 10:07 AM EDT ----- ------- Name: Colon,Carly ?Age/Sex: 29/F ? : 1995 Unit#: [id number] ?? Attend Dr: Cinthya Linares CNM ?Re02/07/25 ?Status: DEP REF ? Location: HO.LAB ?Disch: ? ----- ------- SPEC : [id number] ? RECD: 02/08/25-4707 ? STATUS: ??SOUT ? REQ NUM: [id number] ? BARAK: 02/07/25-1437 ? SUBM DR: Cinthya Linares CNM ? [...] Copies To: ?? Swathi Mckeon MD ?? [facility] ?? [address] ?? [place] [address] ?? [phone] ?? Cinthya Linares CNM ?? [facility] Women[facility] Services ?? [address] ?? [place] [address] ?? [phone] ----- ------- Signed (signature on file) ANNETTA Ng (ASC) 02/10/25 1007 ? ----- ------- ? END OF REPORT ? Generic External Data Provider LAB CYTOLOGY ORDE RABLES Final Result Performing Organization Address [facility]/RUST Co de Phone Number [facility] [address] [place] [phone] * (ABNORMAL) Bacterial Vaginosis (02/07/2025 2:11 PM EDT) [facility] TRICHOMONAS VAGINALIS DETECTION BY PCR NOT DETECTED Not Detect [facility] BACTERIAL VAGINOSIS DETECTION BY PCR NEGATIVE Negative [facility] Comment:The BV organism targ ets of [...] GROUP DETECTION BY PCR DETECTED(A) Not Detect [facility] Shalini glab krusei PCR NOT DETECTED Not Detect [facility] 02/07/2025 2:11 PM EDT 02/07/2025 3:24 PM EDT Generic External Data Provider LAB MICROBIOLOGY - GENERAL ORDERABLES Final Result Performing Organization Address [facility]/RUST Co de Phone Number [facility] [address] [place] [phone] * Chlamydia/N. Gonorrhoeae RNA, TMA, Urogenitial (02/07/2025 2:11 PM EDT) [facility] CT PCR NOT DETECTED Not Detect. [facility] Comment:A not detected test result does [...] psychologicalconsequences. NG PCR NOT DETECTED Not Detect. [facility] Comment:A not detected test result does [...] PM EDT 02/07/2025 3:24 PM EDT Narrative [facility] - 02/07/2025 6:12 PM EDT Vaginal us Generic External Data Provider LAB MICROBIOLOGY - GENERAL ORDERABLES Final Result [facility] [address] [place] [phone] from Last 3 Months Insurance [facility] C3 Care Teams Asset Administrator Relationship Specialty Start Date End Date Swathi Mckeon MD [address] [facility] [place] [address] PCP - General Internal Medicine 02/05/23
== END 2025-03-13 09:44 | disposition home or self-care (01) ==
LOC: HO.MAMMO 09:43
PROVIDERS: PCP Internal Medicine; Visit Provider Advanced Practice Midwife
DX: N63.15 Unspecified lump in the right breast, overlapping quadrants (principal)
CPT/HCPCS: 76642; 77062; 77066

== ENCOUNTER → 2025-03-13 10:00 | Outpatient (BNV) | payer MEDICAID, SELFPAY | PROVIDERS: PCP Internal Medicine; Visit Provider Internal Medicine | DX: N63.10 Unspecified lump in the right breast, unspecified quadrant (principal); R92.321 Mammographic fibroglandular density, right breast | CPT/HCPCS: 76642; 77062; 77066 ==

== ENCOUNTER 2025-03-29 09:46 | Outpatient (AMB) | payer MEDICAID, SELFPAY ==
--- NOTE | 2025-03-29 09:47 | MHC.OFFVIS ---
Intake Visit Reasons: Ultra sound follow up ok per Tiesha Intake Note: pt here for breast and pelvic ultrasound results Allergies No Known Allergies (No Known Allergies*) Allergy (Verified 02/07/25 14:14) HPI Comments Details: Patient is here today for a follow up breast and pelvic imaging: History of palpable breast lump. Abnormal appearance of cervix. Pap results are negative. No unusual bleeding patterns. Denies any breast pain or discharge from the nipples. No other concerns today. [facility] Medical History (Updated 02/07/25 @ 16:15 by Cinthya Linares CNM) Breast mass, right Abnormality of cervix Surgical History Hx of section Family History Sister Breast atypical hyperplasia Social History Alcohol intake: current Alcohol intake frequency: holidays/special occasions only Patient Tobacco Use Status: Never used Tobacco Substance Use Type: Marijuana Sexual orientation: Straight/Heterosexual Gender identity: Female Female Reproductive History Menstrual Age of Menarche: 13 Review of Systems Const All systems reviewed & are unremarkable except as noted in HPI and below Reports no additional complaints Skin/Breast Reports system reviewed and no additional complaints, except as documented and Reports as per HPI Physical Exam Const General: cooperative, healthy appearing and no acute distress Chest Breast/axilla inspection: normal inspection of the breasts and normal inspection of the axillae Breast/axilla palpation: normal palpation of the breasts Skin General skin exam: no rashes or lesions noted Results Reviewed Results Reviewed: [facility] [address] [place] [address] Ultrasound Report Signed Patient: Carly Helms MR#: [id number] : 1995 Acct:[id number] Age/Sex: 30 / F ADM Date: 03/13/25 Loc: HO.MAMMO Attending Dr: Cinthya Linares CNM Ordering Physician: Cinthya Linares CNM Date of Service: 03/13/25 Procedure(s): US breast RT limited mamm only Accession Number(s): [id number] cc: Swathi Mckeon MD; Cinthya Linares CNM~ EXAMINATION: MM DIAGNOSTIC DIGITAL BREAST TOMOSYNTHESIS, BILATERAL Right limited ultrasound. CLINICAL INFORMATION: Right breast palpable lump. COMPARISON: Mammography: Baseline. TECHNIQUE: Digital breast mammography with tomosynthesis is performed in both the craniocaudal and mediolateral oblique views along with computer-aided detection (CAD). FINDINGS: The breasts are heterogeneously dense, which may obscure small masses (ACR BI-RADS breast composition Category c). BB marker in the lower inner right breast without underlying abnormality. There are no significant masses, abnormal calcifications, or other abnormalities. Targeted color Doppler ultrasound scanning from 2 6:00 in the area the patient's palpable lump demonstrates normal fibroglandular breast tissue. There is no sonographic abnormal findings. Results are provided to the patient at time of visit by the technologist. US/US breast RT limited mamm only IMPRESSION: Left: Negative. Right: No mammographic or sonographic abnormality to account for the patient's right breast palpable lump. Recommend clinical evaluation and follow-up. ASSESSMENT: BI-RADS BI-RADS 1 - Negative RECOMMENDATION: 1. Patient should be managed based on the clinical impression. 2. Otherwise, routine annual screening mammography. This patient's information was entered into a reminder system with a target due date for their next mammogram at age 39. Electronically signed by: Juani Patel DO 03/13/2025 11:42 AM EDT Dictated By: Juani Patel DO Signed By: <Electronically signed by Juani Patel DO in OV> 03/13/25 1142 DD/ 1030 TD/TT: 03/13/25 1047 Inside Sales Lead: [address] [address] Ultrasound Report Signed Patient: ColonCarly MR#: [id number] : 1995 Acct:[id number] Age/Sex: 30 / F ADM Date: 03/03/25 Loc: .US Attending Dr: Cinthya Linares CNM Ordering Physician: Cinthya Linares CNM Date of Service: 03/03/25 Procedure(s): US pelvic and transvaginal Accession Number(s): [id number] cc: Swathi Mckeon MD; Cinthya Linares CNM~ EXAMINATION: US PELVIS TRANSABDOMINAL AND TRANSVAGINAL HISTORY: N93.0 - Postcoital and contact bleeding COMPARISON: There are no prior studies for comparison. TECHNIQUE: Transabdominal and endovaginal real-time 2D lopez-scale ultrasound was performed. FINDINGS: Uterus: The uterus is normal in size, measuring 8.8 x 4.1 x 5.4 cm. Myometrium has a normal echotexture. No fibroids are identified. Endometrium: The endometrial stripe measures 7 mm in thickness. A small amount of fluid is seen in the endometrial canal. Right ovary: The right ovary measures 1.7 x 1.9 x 2.0 cm. The right ovary is normal in size and echotexture. Left ovary: The left ovary measures 3.2 x 2.3 x 3.0 cm. The left ovary is normal in size and echotexture. There is a dominant 1.9 x 1.3 x 1.6 cm follicle. Pelvic fluid: none. US/US pelvic and transvaginal IMPRESSION: Small amount of fluid in the endometrial canal. Otherwise unremarkable pelvic ultrasound. Electronically signed by: Manpreet Thao MD 03/03/2025 02:56 PM EDT Dictated By: Manpreet Thao MD Signed By: <Electronically signed by Manpreet Thao MD in OV> 03/03/25 1456 DD/ 1418 TD/TT: 03/03/25 1430 Inside Sales Lead: Assessment & Plan Assessment & Plan (1) Encounter to discuss test results: Code(s): Z71.2 - Person consulting for explanation of examination or test findings (2) Abnormality of cervix: Code(s): N88.9 - Noninflammatory disorder of cervix uteri, unspecified Category: Medical Plan: Reviewed Pap results, an ultrasound findings. Monitor menses report any abnormal changes. The patient expressed understanding and agreement with the plan of care. All of her questions and concerns were addressed to the best of my ability. Plan Discussed results: Breast imaging- ASSESSMENT: BI-RADS BI-RADS 1 - Negative RECOMMENDATION: 1. Patient should be managed based on the clinical impression. 2. Otherwise, routine annual screening mammography. Pelvic imaging- Pelvic US: IMPRESSION: Small amount of fluid in the endometrial canal. Otherwise unremarkable pelvic ultrasound. The patient expressed understanding and agreement with the plan of care. All of her questions and concerns were addressed to the best of my ability. Annual exam scheduled. Follow up p.r.n. if any concerns. This note is constructed using voice recognition software. While every effort has been made to ensure accuracy, insulation extruder operator errors may have been included. Coding Level of Care Code Est Pt Level 3 (74459) Diagnoses Encounter to discuss test results Z71.2 Abnormality of cervix N88.9
--- OUTSIDE RECORDS SUMMARY | 2025-03-29 10:50 | XMS_ITS | Clinical Summary ---
Author Organization [employer] Address [address] [facility] [address] [place] [address] Care Team Providers Care Refrigeration Engine Operator Name Role Phone Swathi Mckeon MD Primary [...] Encounters Date Type Department Care Team Description 03/27/2025 Telephone [facility] [address] [place] [phone] Swathi Mckeon MD No Show 03/20/[address] [address] Swathi Mckeon MD Chart Prep 03/17/2025 Patient Outreach [address] [address] Swathi Mckeon MD Pre-visit Planning (SDOH screening negative and tobacco screening positive) 03/13/2025 Orders Only [facility] External Provider, [facility] 02/10/[address] [phone] Swathi Mckeon MD Results 02/07/2025 Orders Only GENERIC EXTERNAL DATA DEPARTMENT Provider, Generic External Data from Last 3 Months Immunizations Immunization Administration [...] housing situation today? I have darling mercado 03/17/[address] you li ve. Do you have problems with any of the following? None of the above 03/17/2025 Food Insecurity Answer Date Recorded Within the past 12 months, y ou worried that your food would run out before you got money to buy more: Never True 03/17/2025 Within the past 12 months,th e food you bought just didn't last and you didn't have enough money to get more: Never True 03/2025 Transportation Answer Date Recorded In the past 12 months, has l ack of transportation kept you from medical appts, meetings, work or from getting things needed for daily living? No 03/17/2025 Utilities Answer Date Recorded In the past 12 months, has t he electric, gas, oil or water company threatened to shut off services in your home? No 03/17/2025 Depression Answer Date Recorded Patient Health Questionnaire-2 Score 2 02/13/2023 Internet Access Answer Date Recorded Internet Access Q1 Yes 03/17/2025 Internet Access Q2 Not on file 03/17/2025 Comments Unknown Sex and Gender Information Value Date Recorded Sex Assigned at Female 08/11/2022 10:15 AM EDT Legal Sex Female 10:15 AM EDT Gender Identity Female 08/11/2022 10:15 AM EDT Sexual Orientation Straight 08/11/2022 10 :15 AM EDT Last Filed Vital Signs Vital Sign Reading Time Taken Comments Blood Pressure 114/58 02/13/2023 9:17 AM EDT Pulse 84 02/13/2023 9:17 AM EDT Temperature 37.1 C (98.7 F) 02/13/2023 9:17 AM EDT Respiratory Rate 20 02/13/2023 9:17 AM EDT Oxygen Saturation - - Inhaled Oxygen Concentration - - Weight 52.8 kg (116 lb 6 oz) 02/13/2023 9:17 AM EDT Height 157.5 cm (5' 2 ) 02/13/2023 9:17 AM EDT Body Mass Index 21.29 02/13/2023 9:17 AM EDT Plan of Treatment Upcoming Encounters Date Type Department Care Team (Late st Contact Info) Description 05/22/2025 2:45 PM EDT Office Visit [facility] [address] [place] [address] Swathi Mckeon MD [address] [place] [address] Health Maintenance Due Date Last Done Comments Disability Screening 1995 Alcohol/Substance Use Screening 2006 Family Planning (PISQ) 2009 Hepatitis B Vaccines (1 of 3 - 19+ 3-dose series) 2013 Depression Screening 02/14/2024 02/13/2023, 02/13/2023 COVID-19 Vaccine (3 - 2023-2 5 season) 2024 01/14/2022, 12/24/2021 Influenza Vaccine (Season Ended) 2025 07/29/2019 SDOH Screening 03/17/2026 03/17/2025 Tobacco Screening 03/17/2026 03/17/2025 DTaP/Tdap/Td Vaccines (2 - T d or [...] Years) and At-Risk Patients (6 to 49) Years Aged Out No longer eligible b ased on patient's age to complete this topic RSV under 20 months Aged Out No longe r eligible based on patient's age to complete this topic Rotavirus Vaccines Aged Out No longer eligible based on patient's age to complete this topic Procedures Procedure Name Priority Date/Time Associated Diagnosis Comments BI US BREAST LIMITED RIGHT Routine 03/13/2025 10:30 AM EDT BI MAMMOGRAM DIAGNOSTIC TOMOSYNTHESIS BILATERAL Routine 03/13/2025 10:00 AM EDT US PELVIS TRANSVAGINAL Routine 2:18 PM EDT HIV 1/2 ANTIGEN/ANTIBODY, FOURTH GENERATION W/RFL Routine 02/07/2025 3:00 PM EDT HEPATITIS C AB W/REFL TO HCV RNA, QN, PCR Routine 02/07/2025 3:00 PM EDT HEPATITIS B CORE AB TOTAL Routine 02/07/2025 3:00 PM EDT SYPHILIS SCREEN Routine 02/07/2025 3:00 PM EDT PAP SMEAR Routine 02/07/2025 2:31 PM EDT HPV DNA, LOW/HIGH RISK Routine 2:31 PM EDT CHLAMYDIA/N. GONORRHOEAE RNA, TMA, UROGENITAL Routine 02/07/2025 2:11 PM EDT BACTERIAL VAGINOSIS PANEL Routine 02/07/2025 2:11 PM EDT from Last 3 Months Results * BI US Breast Limited Right (03/13/2025 10:30 AM EDT) Anatomical Region Laterality Modality Breast Right Ultrasound 03/13/2025 10:3 0 AM EDT Narrative 03/13/2025 11:45 AM EDT [facility] [address] [place], [place] [address] Ultrasound Report Signed Patient: Colon,Carly MR#: [id number] 0 : 1995 Acct:[id number] Age/Sex: 30 / F ADM Date: 03/13/25 Loc: HO.MAMMO Attending Dr: Cinthya Linares CNM Ordering Physician: Cinthya Linares CNM Date of Service: 03/13/25 Procedure(s): US breast RT limited mamm only Accession Number(s): [id number] cc: Swathi Mckeon MD; Cinthya Linares CNM EXAMINATION: MM DIAGNOSTIC DIGITAL BREAST TOMOSYNTHESIS, BILATERAL Right limited ultrasound. CLINICAL INFORMATION: Right breast palpable lump. COMPARISON: Mammography: Baseline. TECHNIQUE: Digital breast mammography with tomosynthesis is performed in both the craniocaudal and mediolateral oblique views along with computer-aided detection (CAD). FINDINGS: The breasts are heterogeneously dense, which may obscure small masses (ACR BI-RADS breast composition Category c). BB marker in the lower inner right breast without underlying abnormality. There are no significant masses, abnormal calcifications, or other abnormalities. Targeted color Doppler ultrasound scanning from 2 6:00 in the area the patient's palpable lump demonstrates normal fibroglandular breast tissue. There is no sonographic abnormal findings. Results are provided to the patient at time of visit by the technologist. US/US breast RT limited mamm only IMPRESSION: Left: Negative. Right: No mammographic or sonographic abnormality to account for the patient's right breast palpable lump. Recommend clinical evaluation and follow-up. ASSESSMENT: BI-RADS BI-RADS 1 - Negative RECOMMENDATION: 1. Patient should be managed based on the clinical impression. 2. Otherwise, routine annual screening mammography. This patient's information was entered into a reminder system with a target due date for their next mammogram at age 39. Electronically signed by: Juani Patel DO 03/13/2025 11:42 AM EDT Dictated By: Juani Patel DO Signed By: <Electronically signed by Juani Patel DO in OV> 03/13/25 1142 DD/ 1030 TD/TT: 03/13/25 1047 Assistant Plant Controller: Procedure Note Donotuseinterpreter, Image - 03/13/2025 [facility] [address] [place], [place] [address] Ultrasound Report Signed Patient: Carly HelmsMR#: [id number] 0 : 1995Acct:[id number] Age/Sex: 30 / FADM Date: 03/13/25 Loc: HO.MAMMO Attending Dr: Cinthya Linares CNM Ordering Physician: Cinthya Linares CNM Date of Service: 03/13/25 Procedure(s): US breast RT limited mamm only Accession Number(s): [id number] cc: Swathi Mckeon MD; Cinthya Linares CNM EXAMINATION: MM DIAGNOSTIC DIGITAL BREAST TOMOSYNTHESIS, BILATERAL Right limited ultrasound. CLINICAL INFORMATION: Right breast palpable lump. COMPARISON: Mammography: Baseline. TECHNIQUE: Digital breast mammography with tomosynthesis is performed in both the craniocaudal and mediolateral oblique views along with computer-aided detection (CAD). FINDINGS: The breasts are heterogeneously dense, which may obscure small masses (ACR BI-RADS breast composition Category c). BB marker in the lower inner right breast without underlying abnormality. There are no significant masses, abnormal calcifications, or other abnormalities. Targeted color Doppler ultrasound scanning from 2 6:00 in the area the patient's palpable lump demonstrates normal fibroglandular breast tissue. There is no sonographic abnormal findings. Results are provided to the patient at time of visit by the technologist. US/US breast RT limited mamm only IMPRESSION: Left: Negative. Right: No mammographic or sonographic abnormality to account for the patient's right breast palpable lump. Recommend clinical evaluation and follow-up. ASSESSMENT: BI-RADS BI-RADS 1 - Negative RECOMMENDATION: 1. Patient should be managed based on the clinical impression. 2. Otherwise, routine annual screening mammography. This patient's information was entered into a reminder system with a target due date for their next mammogram at age 39. Electronically signed by: Juani Patel DO 03/13/2025 11:42 AM EDT Dictated By: Juani Patel DO Signed By: <Electronically signed by Juani Patel DO in OV> 03/13/25 1142 DD/ 1030 TD/TT: 03/13/25 1047 Assistant Plant Controller: us [facility] External Provider IMG US PROCEDURES Edited Result - Final * BI Mammogram Diagnostic Tomosynthesis Bilateral (03/13/2025 10:00 AM EDT) Anatomical Region Laterality Modality Breast Bilateral Mammography 03/13/2025 10:0 0 AM EDT Narrative 03/13/2025 11:45 AM EDT [address] [place] [address] Mammography Report Signed Patient: Carly Helms MR#: [id number] 0 : 1995 Acct:[id number] Age/Sex: 30 / F ADM Date: 03/13/25 Loc: HO.MAMMO Attending Dr: Cinthya Linares CNM Ordering Physician: Cinthya Linares CNM Results: 1Nega tive Date of Service: 03/13/25 Follow Up: 1 Year From [facility] Mammogram Procedure(s): MM tomosynthesis diagnostic BI Accession Number(s): [id number] cc: Swathi Mckeon MD; Cinthya Linares CNM EXAMINATION: MM DIAGNOSTIC DIGITAL BREAST TOMOSYNTHESIS, BILATERAL Right limited ultrasound. CLINICAL INFORMATION: Right breast palpable lump. COMPARISON: Mammography: Baseline. TECHNIQUE: Digital breast mammography with tomosynthesis is performed in both the craniocaudal and mediolateral oblique views along with computer-aided detection (CAD). FINDINGS: The breasts are heterogeneously dense, which may obscure small masses (ACR BI-RADS breast composition Category c). BB marker in the lower inner right breast without underlying abnormality. There are no significant masses, abnormal calcifications, or other abnormalities. Targeted color Doppler ultrasound scanning from 2 6:00 in the area the patient's palpable lump demonstrates normal fibroglandular breast tissue. There is no sonographic abnormal findings. Results are provided to the patient at time of visit by the technologist. MM/MM tomosynthesis diagnostic BI IMPRESSION: Left: Negative. Right: No mammographic or sonographic abnormality to account for the patient's right breast palpable lump. Recommend clinical evaluation and follow-up. ASSESSMENT: BI-RADS BI-RADS 1 - Negative RECOMMENDATION: 1. Patient should be managed based on the clinical impression. 2. Otherwise, routine annual screening mammography. This patient's information was entered into a reminder system with a target due date for their next mammogram at age 39. Electronically signed by: Juani Patel DO 03/13/2025 11:42 AM EDT Dictated By: Juani Patel DO Signed By: <Electronically signed by Juani Patel DO in OV> 03/13/25 1142 DD/ 1000 TD/TT: 03/13/25 1025 Assistant Plant Controller: Procedure Note Donotuseinterpreter, Image - 03/13/2025 [facility]'s [address] [place] [address] Mammography Report Signed Patient: Carly HelmsMR#: [id number] 0 : 1995Acct:[id number] Age/Sex: Date: 03/13/25 Loc: HO.MAMMO Attending Dr: Cinthya Linares CNM Ordering Physician: Cinthya Linaresesults: 1Nega tive Date of Service: 03/13/25Follow Up: 1 Year From Orig inal Mammogram Procedure(s): MM tomosynthesis diagnostic BI Accession Number(s): [id number] cc: Swathi Mckeon MD; Cinthya Linares CNM EXAMINATION: MM DIAGNOSTIC DIGITAL BREAST TOMOSYNTHESIS, BILATERAL Right limited ultrasound. CLINICAL INFORMATION: Right breast palpable lump. COMPARISON: Mammography: Baseline. TECHNIQUE: Digital breast mammography with tomosynthesis is performed in both the craniocaudal and mediolateral oblique views along with computer-aided detection (CAD). FINDINGS: The breasts are heterogeneously dense, which may obscure small masses (ACR BI-RADS breast composition Category c). BB marker in the lower inner right breast without underlying abnormality. There are no significant masses, abnormal calcifications, or other abnormalities. Targeted color Doppler ultrasound scanning from 2 6:00 in the area the patient's palpable lump demonstrates normal fibroglandular breast tissue. There is no sonographic abnormal findings. Results are provided to the patient at time of visit by the technologist. MM/MM tomosynthesis diagnostic BI IMPRESSION: Left: Negative. Right: No mammographic or sonographic abnormality to account for the patient's right breast palpable lump. Recommend clinical evaluation and follow-up. ASSESSMENT: BI-RADS BI-RADS 1 - Negative RECOMMENDATION: 1. Patient should be managed based on the clinical impression. 2. Otherwise, routine annual screening mammography. This patient's information was entered into a reminder system with a target due date for their next mammogram at age 39. Electronically signed by: Juani Patel DO 03/13/2025 11:42 AM EDT Dictated By: Juani Patel DO Signed By: <Electronically signed by Juani Patel DO in OV> 03/13/25 1142 DD/ 1000 TD/TT: 03/13/25 1025 Assistant Plant Controller: [facility] External Provider IMG BI PROCEDURES Edited Result - Final * US Pelvis Transvaginal (03/03/2025 2:18 PM EDT) Anatomical Region Laterality Modality Pelvis Ultrasound 03/03/2025 2:18 PM EDT Narrative 03/03/2025 2:59 PM EDT [address] [address] Ultrasound Report Signed Patient: Carly Helms MR#: [id number] 0 : 1995 Acct:[id number] Age/Sex: 30 / F ADM Date: 03/03/25 Loc: HO.US Attending Dr: Cinthya Linares CNM Ordering Physician: Cinthya Linares CNM Date of Service: 03/03/25 Procedure(s): US pelvic and transvaginal Accession Number(s): [id number] cc: Swathi Mckeon MD; Cinthya Linares CNM [...] Otherwise unremarkable pelvic ultrasound. Electronically signed by: Manprete Thao MD 03/03/2025 02:56 PM EDT Dictated By: Manpreet Thao MD Signed By: <Electronically signed by Manpreet Thao MD in OV> 03/03/25 1456 DD/ 1418 TD/TT: 03/03/25 1430 Assistant Plant Controller: Procedure Note Donotuseinterpreter, Image - 03/03/[address] [address] Ultrasound Report Signed Patient: Carly HelmsMR#: [id number] 0 : 1995Acct:[id number] Age/Sex: 30 / FADM Date: 03/03/25 Loc: HO.US Attending Dr: Cinthya Linares CNM Ordering Physician: Cinthya Linares CNM Date of Service: 03/03/25 Procedure(s): US pelvic and transvaginal Accession Number(s): [id number] cc: Swathi Mckeon MD; Cinthya Linares CNM [...] Manpreet Thao MD 03/03/2025 02:56 PM EDT Dictated By: Manpreet Thao MD Signed By: <Electronically signed by Manpreet Thao MD in OV> 03/03/25 1456 DD/ 1418 TD/TT: 03/03/25 1430 Assistant Plant Controller: us [facility] External Provider IMG US PROCEDURES Final Result * Syphilis Screen (02/07/2025 3:00 PM EDT) Syphilis Screen Nonreactive Nonreactive [facility] 02/07/2025 3:00 PM EDT 02/07/2025 3:03 PM EDT us Generic External Data Provider LAB BLOOD ORDERAB LES Final Result Performing Organization Address [facility] Co de Phone Number [facility] [address] [place] [phone] * Hepatitis C Antibody with Reflex to HCV, RNA, Quantitative, Real-Time PCR (02/07/2025 3:00 PM EDT) Hepatitis C Antibody Nonreactive Nonreactive [facility] Comment:Antibodies to HCV no t detected; does not exclude early acuteHCV infection. 02/07/2025 3:00 PM EDT 02/07/2025 3:03 PM EDT Generic External Data Provider LAB BLOOD ORDERAB LES Final Result Performing Organization Address [facility] Co de Phone Number [facility] [address] [place] [phone] * Hepatitis B Core Antibody, Total (02/07/2025 3:00 PM EDT) Pathologist [facility] Hepatitis B Core Antibody Nonreactive Nonreactive [facility] 02/07/2025 3:00 PM EDT 02/07/2025 3:03 PM EDT Generic External Data Provider LAB BLOOD ORDERAB LES Final Result Performing Organization Address [facility] Co de Phone Number [facility] [address] [place] [phone] * HIV-1/2 Antigen and Antibodies, Fourth Generation, with Reflexes (02/07/2025 3:00 PM EDT) HIV AB/AG Nonreactive Nonreactive [facility] Comment:HIV-1 p24 Ag and/or HIV-1/HIV-2 Ab not detected.A test result that is nonreactive does not exclude thepossibility of exposure to or infection with HIV-1 and/orHIV-2. Nonreactive results in this assay for individualswith prior exposure to HIV-1 and/or HIV-2 may be due toantigen and antibody levels that are below the limit ofdetection of this assay.The [employer] HIV Ag/Ab Combo assay result andsupplemental assay results should be interpreted inconjunction with the patient's clinical presentation,history and other laboratory results. If the results areinconsistent with clinical evidence, additional testing issuggested to confirm the result. 02/07/2025 3:00 PM EDT 02/07/2025 3:03 PM EDT us Generic External Data Provider LAB BLOOD ORDERAB LES Final Result Performing Organization Address [facility] Co de Phone Number [facility] [address] [place] [phone] * HPV DNA, Low/High Risk (02/07/2025 2:31 PM EDT) HPV High Risk Negative Negative [facility] HPV Genotype 16 Negative Negative [facility] HPV Genotype 18 Negative Negative [facility] Comment:HPV testing performe d at [facility] (CLIA#[id number]), [address] [place] [address].Testing for HPV was performed using the Angi [...] ORDERAB LES Final Result Performing Organization Address [facility]/ZIP Co de Phone Number [facility] [address] [place] [phone] * Pap Smear (02/07/2025 2:31 PM EDT) 02/07/2025 2:31 PM EDT 02/08/2025 5:50 AM EDT [facility] - 02/10/2025 10:07 AM EDT ----- ------- Name: Colon,Carly Age/Sex: 29/F : 1995 Unit#: [id number] Attend Dr: Cinthya Linares CNM Re02/07/25 Status: DEP REF Location: .LAB Disch: ----- ------- SPEC : [id number] RECD: 02/08/25 STATUS: LEVI NICOLE NUM: [id number] BARAK: 02/07/25-[address] [facility] [address]: Cinthya Linares CNM ENTERED: 02/08/25 SP TYPE: Pap Smr OTHR DR: Swathi Mckeon MD ORDERED: Pap Smear Interpretation Satisfactory for evaluation. Negative for intraepithelial lesion or malignancy. HPV High Risk: Negative HPV Genotyping 16: Negative HPV Genotyping 18: Negative Clinical Information LMP:01/25/25 Previous PAP test:02/06/22 Material Received ThinPrep-Cervical Copies To: [place] [address] Cinthya Linares [facility] [address] [place] [address] ----- ------- Signed (signature on file) ANNETTA Ng (ASCP) 02/10/25 1007 ----- ------- END OF REPORT us Generic External Data Provider LAB CYTOLOGY JONNA PEREZ Final Result [facility] [address] [place] [phone] * (ABNORMAL) Bacterial Vaginosis (02/07/2025 2:11 PM EDT) TRICHOMONAS VAGINALIS DETECTION BY PCR NOT DETECTED Not Detect [facility] BACTERIAL VAGINOSIS DETECTION BY PCR NEGATIVE Negative [facility] Comment:The BV organism targ ets [...] GROUP DETECTION BY PCR DETECTED(A) Not Detect [facility] Shalini glab krusei PCR NOT DETECTED Not Detect [facility] 02/07/2025 2:11 PM EDT 02/07/2025 3:24 PM EDT us Generic External Data Provider LAB MICROBIOLOGY - GENERAL ORDERABLES Final Result [facility] [address] [place] [phone] * Chlamydia/N. Gonorrhoeae RNA, TMA, Urogenitial (02/07/2025 2:11 PM EDT) CT PCR NOT DETECTED Not Detect. [facility] Comment:A not detected test result [...] psychologicalconsequences. NG PCR NOT DETECTED Not Detect. [facility] Comment:A not detected test result [...] PM EDT 02/07/2025 3:24 PM EDT Narrative [facility] - 02/07/2025 6:12 PM EDT Vaginal us Generic External Data Provider LAB MICROBIOLOGY - GENERAL ORDERABLES Final Result [facility] [address] [place] [phone] from Last 3 [place] [phone] [facility] [address] [place] [address] [place] [address] [place] [address] Care Teams Refrigeration Engine Operator Relationship Specialty Start Date End Date Swathi Mckeon MD [address] [place] [phone] PCP - General Internal Medicine 02/05/23
== END 2025-03-29 10:44 | disposition home or self-care (01) ==
LOC: HO.HWS 09:46
PROVIDERS: PCP Internal Medicine; Visit Provider Advanced Practice Midwife
DX: Z71.2 Person consulting for explanation of examination or test findings (principal); N88.9 Noninflammatory disorder of cervix uteri, unspecified
CPT/HCPCS: 99213

== ENCOUNTER → 2025-03-29 09:46 | Outpatient (BNVA) | payer MEDICAID, SELFPAY | PROVIDERS: PCP Internal Medicine; Visit Provider Advanced Practice Midwife | DX: Z71.2 Person consulting for explanation of examination or test findings (principal); N88.9 Noninflammatory disorder of cervix uteri, unspecified | CPT/HCPCS: 99212 ==